=== PATIENT | female | born 1940 | race Caucasian/White ===

== ENCOUNTER 2016-05-15 05:17 | Day surgery (SDC) | payer MEDICARE, MEDICAID ==
[2016-05-15] VITALS (12 sets, daily range): BP systolic 125–153; BP diastolic 54–77; PULSE 58–86; TEMP 97.2–98.2
[~2016-05-15] VITALS: Ht 160 cm; Wt 66.8 kg
[~2016-05-15 05:17] MED LIST: ALBUTEROL SULFAT3 M3 IH; ALLOPURINOL100 MG PO; ALMACONE 360 M360 ML PO; AMITRIPTYLINE H50 M1 PO; AMITRIPTYLINE25 MG PO; APRISO0.375 GM PO; ARTIFICIAL TEAR15 M7 OP; ASACOL 400400 MG/TAB PO; ASPERCREME85G TP; B-121000 MCG PO; COLACE 100100 MG/CAP PO; COUMADIN 3MG3 MG/TAB PO; COUMADIN 6MG6 MG/TAB PO; COUMADIN4 MG PO; COZAAR100 MG PO; CYMBALTA 30MG30 MG PO; CYMBALTA 60MG60 MG PO; DARVON; DEBROX OT; DULCOLAX S10 MG/SUPP RC; FENTANYL 100MCG TD; FERRO-TIME325 MG PO; FLAGYL500 MG PO; FLONASE NASAL S16 GM NS; FLONASEALLERGY NS; FLOVENT0.11 MG/AC IH; GENTLE LAXATIVE10 MG RC; GLUCERNA 240 M240 ML PO; GLUCOTROL10 MG PO; GLYBURIDE5 MG PO; HCTZ12.5TAB PO; HUMULIN R 10100 U/ML; INDOCIN 25MG CA25 MG PO; INDOCIN25 MG PO; IRON325 M1 PO; LANTUS100 U/ML; LASIX 40MG TABL40 MG PO; LEVAQUIN 5500 MG/TA1 PO; LEVOTHYROXIN0.125 MG PO; LEVOXYL0.125 MG PO; LIQUIFILM TEARS15 ML OU; METHADONE H10 MG/TAB PO; MICROZIDE12.5 MG PO; MILK OF MA400 MG/52; MILK OF MA400 MG/52 PO; MOBIC 7.5MG7.5 MG PO; NATURE'S BLE1000 MCG PO; NORCO 325 MG-51 TAB PO; NORVASC2.5 MG PO; NOVOLOG 100U100 U/M1 SQ; NYSTATIN OR100 MU/ML PO; PERCOCET 325 MG1 TA2 PO; POLYSPORIN OINT30 GM TP; PRILOSEC 20MG20 MG PO; PROAIR HFA0.09 MG/AC IH; REFRESH CELLUVI1 SOL OP; RESTASIS 60VL OP; RESTASIS 60VL OU; ROBAXIN 75750 MG/TAB PO; RT ADVAIR 228 DISKUS IH; SYNTHROID0.125 MG/T PO; SYNTHROID0.137 MG PO; TYLENOL 325MG325 MG PO; TYLENOL 8 HR PO; TYLENOL SU650 MG/SUP RC; VANOS 0.1% TP; VENTOLIN0.09 MG IH; VITAMIN B-1000 MCG/T PO; WARFARIN SODIUM6 MG PO; ZANTAC 150MG T150 MG PO; ZOFRAN INJ4 MG/2 ML IV; ZYLOPRIM 100MG100 MG PO
[2016-05-15 06:21] LABS: BASO % 0.5 % (0.0-2.0); EOS # 0.8 (0.0-0.7); EOS % 14.4 % (0-4.0); GRAN # 3.3 (1.4-6.5); GRAN % 57.5 % (42.2-75.2); HEMATOCRIT 40.1 % (37.0-47.0); HEMOGLOBIN 13.1 g/dl (12.5-16.0); LYMPH # 1.2 (1.2-3.4); LYMPH % 20.5 % (20.0-51.0); MEAN CELL VOLUME 94 fl (80.0-100.0); MEAN CORPUSCULAR HEMOGLOBIN 31 pg (27.0-31.0); MEAN CORPUSCULAR HGB CONC 33 g/dl (33.0-37.0); MEAN PLATELET VOLUME 9.6 fl (7.4-10.4); MONO # 0.4 (0.1-0.6); MONO % 6.8 % (1.7-9.3); PLATELET COUNT 232 K/mm3 (130-400); RED BLOOD COUNT 4.25 M/mm3 (4.10-5.30); REDCELL DISTRIBUTION WIDTH-CV 11.9 % (11.5-14.5); WHITE BLOOD COUNT 5.8 K/mm3 (4.8-10.8)
[2016-05-15 06:32] LABS: ADJUSTED CALCIUM 9.4 mg/dL (8.4-10.2); ALBUMIN 4.1 gm/dL (3.5-5.0); BILIRUBIN,TOTAL 0.4 mg/dL (0.0-1.0); CALCIUM 9.5 mg/dL (8.4-10.2); CREATININE, serum 1.55 mg/dL (0.52-1.25); POTASSIUM 3.7 mmol/L (3.4-5.0); TOTAL PROTEIN 7.4 gm/dL (6.4-8.2)
[2016-05-16 04:37] VITALS: BP 136/91; PULSE 80; TEMP 98.2
[2016-05-16 10:38] VITALS: BP 140/59; PULSE 66; TEMP 98.6
[2016-05-16 13:57] VITALS: BP 151/75; PULSE 67; TEMP 97.7
[2016-05-16 17:01] VITALS: BP 151/75; PULSE 67; TEMP 97.7
== END 2016-05-16 17:41 ==
LOC: SDCO 05:17 → SURG 09:40 → SDCO 05-16 17:41
PROVIDERS: Surgery
DX: K80.10 Calculus of gallbladder with chronic cholecystitis without obstruction (principal); K82.8 Other specified diseases of gallbladder; E11.40 Type 2 diabetes mellitus with diabetic neuropathy, unspecified; K21.9 Gastro-esophageal reflux disease without esophagitis; E03.9 Hypothyroidism, unspecified; I10 Essential (primary) hypertension; G47.33 Obstructive sleep apnea (adult) (pediatric); K51.90 Ulcerative colitis, unspecified, without complications; Z85.3 Personal history of malignant neoplasm of breast; M51.36 Other intervertebral disc degeneration, lumbar region; M15.9 Polyosteoarthritis, unspecified; Z79.899 Other long term (current) drug therapy; Z79.01 Long term (current) use of anticoagulants; Z79.4 Long term (current) use of insulin; Z79.84 Long term (current) use of oral hypoglycemic drugs
CPT/HCPCS: OP; J0690; J1170; J2270; J2405; J2704; J2710; J3010; J7030

== ENCOUNTER → 2016-06-12 | Outpatient (REF) ==
[~2016-06-12] MED LIST changes: +ATIVAN 0.50.5 MG/TAB PO; +DESYREL 100MG100 MG PO; +LASIX 20MG TABL20 MG PO; +SYNTHROID0.112 MG/T PO
== END ==
LOC: ZLAB.WCH 10:34
DX: Z01.89 Encounter for other specified special examinations (principal)

== ENCOUNTER 2016-06-13 13:55 | Emergency (ER) | payer MEDICARE, MEDICAID ==
[~2016-06-13] VITALS: Ht 160 cm; Wt 65.9 kg
[~2016-06-13 13:55] MED LIST changes: -ATIVAN 0.50.5 MG/TAB PO; -DESYREL 100MG100 MG PO; -LASIX 20MG TABL20 MG PO; -SYNTHROID0.112 MG/T PO
[2016-06-13] MEDS ORDERED: DESYREL 100MG100 MG PO (14:48)
[2016-06-13] MEDS ORDERED: LASIX 20MG TABL20 MG PO (14:48)
[2016-06-13] MEDS ORDERED: SYNTHROID0.112 MG/T PO (14:48)
[2016-06-13 15:41] LABS: BASO % 0.7 % (0.0-2.0); EOS # 0.2 (0.0-0.7); EOS % 3.9 % (0-4.0); GRAN # 4.4 (1.4-6.5); GRAN % 75.1 % (42.2-75.2); HEMATOCRIT 39.9 % (37.0-47.0); HEMOGLOBIN 13.1 g/dl (12.5-16.0); LYMPH % 16.6 % (20.0-51.0); MEAN CELL VOLUME 93 fl (80.0-100.0); MEAN CORPUSCULAR HEMOGLOBIN 31 pg (27.0-31.0); MEAN CORPUSCULAR HGB CONC 33 g/dl (33.0-37.0); MEAN PLATELET VOLUME 10.2 fl (7.4-10.4); MONO # 0.2 (0.1-0.6); MONO % 3.4 % (1.7-9.3); PLATELET COUNT 200 K/mm3 (130-400); REDCELL DISTRIBUTION WIDTH-CV 12.4 % (11.5-14.5); WHITE BLOOD COUNT 5.9 K/mm3 (4.8-10.8)
[2016-06-13 15:54] LABS: PH 5 (5-8); SQUAMOUS EPITHELIAL 0-2 /hpf; URINE APPEARANCE Clear; URINE BACTERIA None Seen /hpf; URINE BILIRUBIN Negative (NEGATIVE); URINE BLOOD 1+ (NEGATIVE); URINE COLOR Yellow; URINE GLUCOSE Negative (NEGATIVE); URINE KETONE Negative (NEGATIVE); URINE UROBILINOGEN Negative (NEGATIVE)
[2016-06-13 15:57] LABS: ADJUSTED CALCIUM 9.5 mg/dL (8.4-10.2); ALANINE AMINOTRANSFERASE 29 U/L (9-52); ALBUMIN 3.8 gm/dL (3.5-5.0); ALKALINE PHOSPHATASE 106 U/L (50-136); ANION GAP 9 mmol/L (7-16); BILIRUBIN,TOTAL 0.8 mg/dL (0.0-1.0); BLOOD UREA NITROGEN 22 mg/dL (7-17); CALCIUM 9.3 mg/dL (8.4-10.2); CARBON DIOXIDE 26 mmol/L (22-30); CHLORIDE 103 mmol/L (98-107); CREATININE, serum 1.62 mg/dL (0.52-1.25); GLUCOSE 215 mg/dL (74-106); LIPASE 35 U/L (23-300); SODIUM 139 mmol/L (137-145); TOTAL PROTEIN 6.9 gm/dL (6.4-8.2)
[2016-06-13 15:59] LABS: INFLUENZA B NEGATIVE
[2016-06-13 16:09] LABS: B-TYPE NATRIURETIC PEPTIDE 345 pg/mL (0-450)
[2016-06-13 16:10] LABS: TROPONIN-I < 0.012 ng/mL (0.000-0.034)
[2016-06-13] MEDS ORDERED: ATIVAN 0.50.5 MG/TAB PO (17:11)
[2016-06-13 17:38] VITALS: BP 174/90; PULSE 65; TEMP 98
== END 2016-06-13 17:38 ==
LOC: COL.ER 13:55
PROVIDERS: Emergency Medicine
DX: E11.22 Type 2 diabetes mellitus with diabetic chronic kidney disease (principal); I12.9 Hypertensive chronic kidney disease with stage 1 through stage 4 chronic kidney disease, or unspecified chronic kidney disease; N18.9 Chronic kidney disease, unspecified; Z79.84 Long term (current) use of oral hypoglycemic drugs; R53.83 Other fatigue; R68.83 Chills (without fever)
CPT/HCPCS: J7030

== ENCOUNTER → 2016-12-19 | Outpatient (REF) ==
[~2016-12-19] MED LIST changes: +ATIVAN 0.50.5 MG/TAB PO; +DESYREL 100MG100 MG PO; +LASIX 20MG TABL20 MG PO; +SYNTHROID0.112 MG/T PO
== END ==
LOC: ZLAB.WCH 18:03
DX: Z01.89 Encounter for other specified special examinations (principal)

== ENCOUNTER 2021-09-19 01:58 | Inpatient (IN) | payer MEDICARE, MEDICAID ==
[~2021-09-19] VITALS: Ht 167.6 cm; Wt 76.4 kg
[~2021-09-19 01:58] MED LIST changes: +ALBUTEROL0.83 MG/ML IH; +BIOTIN2500 MCG PO; +BUSPAR10 MG PO; +CELEXA 20MG20 MG/TAB PO; +DESYREL 50MG50 MG PO; +EXELON 1.5MG1.5 MG PO; +FENTANYL37.5 MCG/H TD; +MUCINEX 60600 MG/TA1 PO; +NORCO 325 MG-101 TAB PO; +PEPCID 20MG TAB20 MG PO; +SYNTHROID0.1 MG/TAB PO; +VOLTAREN GEL 1%1 TU TP
[2021-09-19 03:31] LABS: BASO # 0.1 K/mm3 (0.0-0.2); BASO % 0.3 % (0.0-2.0); EOS # 0.3 K/mm3 (0.0-0.7); EOS % 1.7 % (0.0-4.0); GRAN # 15.6 K/mm3 (1.4-6.5); GRAN % 84.1 % (42.2-75.2); HEMOGLOBIN 11.7 g/dl (12.5-16.0); LYMPH # 1.2 K/mm3 (1.2-3.4); LYMPH % 6.7 % (20.0-51.0); MEAN CELL VOLUME 91 fl (80.0-100.0); MEAN CORPUSCULAR HEMOGLOBIN 29 pg (27-31); MEAN CORPUSCULAR HGB CONC 32 g/dl (33.0-37.0); MONO # 1.2 K/mm3 (0.1-0.6); MONO % 6.6 % (1.7-9.3); PLATELET COUNT 245 K/mm3 (130-400); RED BLOOD COUNT 4.03 M/mm3 (4.10-5.30); REDCELL DISTRIBUTION WIDTH-CV 12.8 % (11.5-14.5)
[2021-09-19 03:34] LABS: HEMATOCRIT 36.5 % (37.0-47.0)
[2021-09-19 03:47] LABS: ALBUMIN 3.4 gm/dL (3.4-4.8); ALKALINE PHOSPHATASE 80 U/L (40-150); ANION GAP 13 mmol/L (7-16); AST,SGOT 15 U/L (5-34); BILIRUBIN,TOTAL 0.3 mg/dL (0.2-1.2); BLOOD UREA NITROGEN 27 mg/dL (10-20); CALCIUM 8.3 mg/dL (8.4-10.2); CARBON DIOXIDE 22 mmol/L (23-31); CHLORIDE 104 mmol/L (98-107); CREATININE, serum 2.19 mg/dL (0.57-1.11); GLUCOSE 180 mg/dL (70-99); POTASSIUM 4.1 mmol/L (3.5-4.5); SODIUM 139 mmol/L (136-145); TOTAL PROTEIN 6.9 gm/dL (6.2-8.1)
[2021-09-19 03:49] LABS: ALANINE AMINOTRANSFERASE < 6 U/L (0-55)
[2021-09-19 03:54] LABS: TROPONIN-I < 0.010 ng/mL (0.00-0.033)
[2021-09-19 04:14] LABS: INR 1.3 (0.8-3.0); PROTHROMBIN TIME 14.4 SECONDS (9.7-12.8)
[2021-09-19] MEDS ORDERED: JANUVIA50 MG PO (06:11)
[2021-09-19] MEDS ORDERED: LEXAPRO20 MG PO (06:11)
[2021-09-19] MEDS ORDERED: MELATONIN5 M1 SL (06:11)
[2021-09-19] MEDS ORDERED: CLARITIN 1010 MG/TAB PO (06:11)
[2021-09-19] MEDS ORDERED: FOSAMAX 70MG TA70 MG PO (06:12)
[2021-09-19] MEDS ORDERED: ZYPREXA 5MG5 MG PO (06:12)
[2021-09-19] MEDS ORDERED: LASIX 20MG TABL20 MG PO (06:14)
[2021-09-19 07:52] LABS: COLLECTION METHOD IN
[2021-09-19 08:03] LABS: PH 5 (5-8); SQUAMOUS EPITHELIAL None Seen /hpf (0-10); URINE APPEARANCE Turbid (CLEAR/HAZY); URINE BACTERIA Many /hpf (NONE SEEN); URINE BILIRUBIN Negative (NEGATIVE); URINE BLOOD 2+ (NEGATIVE); URINE COLOR Yellow (YELLOW); URINE GLUCOSE Negative (NEGATIVE); URINE KETONE Negative (NEGATIVE); URINE LEUKOCYTE ESTERASE 3+ (NEGATIVE); URINE NITRATE Positive (NEGATIVE); URINE PROTEIN(semi-quant) 2+ (NEGATIVE); URINE RBC 20-50 /hpf (0-2); URINE UROBILINOGEN Negative (NEGATIVE)
--- NOTE | 2021-09-19 11:24 | NUR ---
Canine Service Teacher contacted by Alphonse who advised patient is a resident at [facility] and inquired if patient can return there today. Patient was admitted overnight and is currently boarding in the ED. GREG contacted Mahamed at [facility] and faxed clinical updates. GREG advised Mahamed that per nursing staff patient is down to one liter of oxygen. Mahamed confirmed patient is a resident of [facility]. Mahamed reviewed updates and advised they are not able to accept patient back today. GREG contacted LACY Horner to provide update and advised that if they want to discharge today, Hospitalist will need to contact Dr. Villar for a to call.
--- NOTE | 2021-09-19 11:30 | NUR ---
ASSISTED DEVEN SOLORZANO AND DEVEN JAVIER TRANSFERRING PATIENT TO MEDICAL ROOM 354. DURING THIS TIME DEVEN SOLORZANO AND THIS RN OBSERVED A STAGE 2 PRESSURE INJURY TO THE COCCYX.
[2021-09-19 13:39] VITALS: BP 125/57; PULSE 82; TEMP 98.4
[2021-09-19] MEDS ORDERED: IMODIUM 2MG CAPS2 MG PO (14:43)
[2021-09-19 15:45] VITALS: BP 109/43; PULSE 79; TEMP 98.1
--- NOTE | 2021-09-19 16:12 | NUR ---
LOW BP REPORTED FROM [employer] BARREL HEADER, BP RECHECKED SECOND TIME, PT DENIES ANY S/S OF LOW BP. DENIES DIZZINESS OR LIGHT HEADEDNESS
--- NOTE | 2021-09-19 17:30 | NUR ---
PT PLEASANT, DOSE REPORT PAIN BUT WITH BORDERLINE LOW PRESSURE AND PT DROWSINESS NO PAIN MEDS GIVEN AT THIS TIME. PT ALERT BUT SLOW TO RESPOND REQURIES MULTIPLE PROMPTS TO ANSWER QUESTIONS. NO OTHER NEEDS
--- NOTE | 2021-09-19 18:07 | NUR ---
INSULIN GIVEN AT DINNERTIME, PT FEEDING HERSELF, WINCING WHEN SITTING UP.
--- NOTE | 2021-09-19 19:20 | NUR ---
Tx given via mask, tolerated well. Pt placed back on 1L NC after tx.
[2021-09-19 20:01] VITALS: BP 119/55; PULSE 89; TEMP 99
--- NOTE | 2021-09-19 20:30 | NUR ---
Initial shift assessment done- VSS, would like something for pain, states has hip pain 12/20. [place] given, o2 sats on RA 89%- on 1 L/nc, sats 92-93%, Almaraz with cloudy/urine with clumps of sediment, IV fluids of NS at 75cc/hr, Alert/oriented to person/place but not time- bed alarm on, close to nsg station.
[2021-09-20 00:05] VITALS: BP 117/53; PULSE 78; TEMP 97.9
[2021-09-20 04:16] VITALS: BP 112/64; BP 124/58; PULSE 59; PULSE 76; TEMP 97.8; TEMP 98.3
--- NOTE | 2021-09-20 06:16 | NUR ---
Quiet night-- has been sleeping well tonight-- did get a pain pill at the start of the shift- good amount out of Almaraz {[id number]}- no requests at this time- . Repositioned throughout the night-
[2021-09-20 06:21] LABS: BASO % 0.7 % (0.0-2.0); EOS # 0.4 K/mm3 (0.0-0.7); EOS % 6.4 % (0.0-4.0); GRAN % 68.2 % (42.2-75.2); MEAN CELL VOLUME 94 fl (80.0-100.0); MEAN CORPUSCULAR HGB CONC 31 g/dl (33.0-37.0); MEAN PLATELET VOLUME 9.3 fl (7.4-10.4); MONO # 0.5 K/mm3 (0.1-0.6); MONO % 8.4 % (1.7-9.3); PLATELET COUNT 198 K/mm3 (130-400); RED BLOOD COUNT 3.35 M/mm3 (4.10-5.30); REDCELL DISTRIBUTION WIDTH-CV 12.8 % (11.5-14.5)
[2021-09-20 06:22] LABS: HEMATOCRIT 31.5 % (37.0-47.0); MEAN CORPUSCULAR HEMOGLOBIN 30 pg (27-31)
[2021-09-20 06:40] LABS: CALCIUM 7.7 mg/dL (8.4-10.2); CREATININE, serum 1.78 mg/dL (0.57-1.11); POTASSIUM 4.3 mmol/L (3.5-4.5)
[2021-09-20 07:21] VITALS: BP 118/57; PULSE 77; TEMP 97.9
--- NOTE | 2021-09-20 09:51 | NUR ---
GREG met with the patient's son, Lucho (ph#[phone]), to discuss discharge plan. Lucho confirms that the patient resides at [facility] in [facility] and that the plan is for the patient to return back to [facility] upon discharge. The patient's DPOA-HC is in EMR and it designates her son, Lucho. The alternate is Scotty's , Cathy (ph#[phone]). GREG contacted and faxed updates to Rj at [facility]. GREG to continue to follow. *Discharge plan: [facility]*
[2021-09-20 11:16] VITALS: BP 118/55; PULSE 80; TEMP 98.3
--- NOTE | 2021-09-20 12:09 | NUR ---
Pt alert and oriented when awoken. Pt appears to be drowsy today when not stimulated, or falls back asleep quickly. Is alert to speech and is able to answer orientation questions correctly. Reported "all around pain" this morning. Administered prn norco and repositioned and the pt reported relief. Shift assessment performed. Medications administered per orders and education provided. Pt only ate a small amount of breakfast, but ate was more alert at lunch and ate independently. Pt was on 1L, but bumped to 2L because she was sitting at 89-90%. Pt consistently pulls off oxygen and has to be reminded to keep it on. Buck catheter in place, with adequate output. Urine is yellow, with sediment. Was given verbal orders by the hospitalist to remove the buck catheter today. Will remove catheter and chart the urine output. VS stable. FSBS stable. Continuing to turn pt every 2 hours to prevent skin damage. Noted a small stage 1 pressure ulcer on the sacral area with a small skin tear in the middle that a second RN verified with me. Lung sounds are clear. Called another consult into ortho to see pt. Pt reports no questions at this time, will continue to monitor.
--- NOTE | 2021-09-20 12:55 | NUR ---
Removed buck catheter per orders. Emptied 550 ml of yellow urine from the buck bag prior to removing the catheter. Pulled 10 ml of fluid from balloon and provided mallory care. No concerns at this time.
[2021-09-20 15:23] VITALS: BP 123/59; PULSE 83; TEMP 98.4
--- NOTE | 2021-09-20 19:24 | NUR ---
No adverse events throughout the shift. Pt remains alert and oriented, but still drowsy. Reported "all around" pain x2 today. Prn norco was administered x2 with q2 repositioning and pt reported relief. Almaraz was removed today and pt was up to the bsc with 2 assist to void. Pt had adequate output today and intake was fair. IV fluids continue as well as IV antibx. VS stable today, pt afebrile. On 2L NC satting in 90's. Encouraged pt to get OOB with staff or PT when able. Pt reports no questions at this time. No new concerns.
[2021-09-20 20:39] VITALS: BP 121/58; PULSE 84; TEMP 98.1
[2021-09-21 00:24] VITALS: BP 111/52; PULSE 78; TEMP 99.1
[2021-09-21 04:28] VITALS: BP 129/70; PULSE 79; TEMP 98.3
[2021-09-21 05:54] LABS: BASO % 0.3 % (0.0-2.0); EOS # 0.3 K/mm3 (0.0-0.7); EOS % 3.9 % (0.0-4.0); GRAN # 5.9 K/mm3 (1.4-6.5); GRAN % 76.3 % (42.2-75.2); LYMPH # 0.8 K/mm3 (1.2-3.4); LYMPH % 10.2 % (20.0-51.0); MEAN CELL VOLUME 94 fl (80.0-100.0); MEAN CORPUSCULAR HGB CONC 31 g/dl (33.0-37.0); MEAN PLATELET VOLUME 9.4 fl (7.4-10.4); MONO # 0.7 K/mm3 (0.1-0.6); PLATELET COUNT 185 K/mm3 (130-400); RED BLOOD COUNT 3.33 M/mm3 (4.10-5.30); REDCELL DISTRIBUTION WIDTH-CV 12.9 % (11.5-14.5)
[2021-09-21 06:06] LABS: HEMATOCRIT 31.4 % (37.0-47.0); HEMOGLOBIN 9.7 g/dl (12.5-16.0); MEAN CORPUSCULAR HEMOGLOBIN 29 pg (27-31)
[2021-09-21 06:16] LABS: CALCIUM 7.8 mg/dL (8.4-10.2); CREATININE, serum 1.64 mg/dL (0.57-1.11); POTASSIUM 4.3 mmol/L (3.5-4.5)
--- NOTE | 2021-09-21 06:30 | NUR ---
ASSESSMENT COMPLETE FOR THIS SHIFT. PT RESTING IN BED WATCHING TV. PT COMPLAINED OF LOWER LEFT SIDED PAIN (HIP TO LOWER LEFT LEG). PT GIVEN MORPHINE FOR PAIN. PAIN MEDICATION WAS EFFECTIVE PER PT. PT DENIED PALPITATIONS, SOB, N,V,D OR DIZZINESS. PT FELT GETTING UP TO RESTROOM WAS VERY PAINFUL AND WANTED TO TRY THE PUREWICK FOR THE NIGHT. PUREWICK APPLIED. PT EXPRESSED NO OTHER NEEDS AT THIS TIME. CALL LIGHT WITHIN REACH.
[2021-09-21 07:48] VITALS: BP 140/56; PULSE 86; TEMP 98.4
[2021-09-21] MEDS ORDERED: IPRATROPIUM BROM3 M1 IH (09:07)
[2021-09-21] MEDS ORDERED: TYLENOL 500MG500 MG PO (09:09)
[2021-09-21] MEDS ORDERED: MIRALAX PA17 GM/Dose PO (09:11)
[2021-09-21] MEDS ORDERED: NORCO 325 MG-51 TAB PO (09:12)
--- NOTE | 2021-09-21 10:06 | NUR ---
PT RESTING IN BED. MORNING MEDICATIONS GIVEN. SHIFT ASSESSMENT COMPLETED. PT REPORTS PAIN WHEN BEING MOVED IN BED. UPDATED ON POC. WILL CONTINUE TO MONITOR.
--- NOTE | 2021-09-21 11:22 | NUR ---
REPORT GIVEN TO RN AT [facility].
[2021-09-21 12:23] VITALS: BP 140/72; PULSE 88; TEMP 98.4
--- NOTE | 2021-09-21 12:40 | NUR ---
First visit from the back strip machine operator. No needs right now.
[2021-09-21 16:04] VITALS: BP 131/66; PULSE 80; TEMP 98.5
--- NOTE | 2021-09-21 16:09 | NUR ---
The clinical team was ready to discharge the patient today. GREG notified and faxed updates to Rj at [facility]. Rj states that Dr. Villar would like a doc-to-doc. GREG notified the hospitalist. The hospitalist did the doc-to-doc. The hospitalist and Dr. Villar agree that the patient needs a VQ scan and doppler scan before discharge. Those were ordered. The patient did not arrive back from the VQ scan until late afternoon. Rj, at [facility], reports that with it being late in the afternoon and the results are not back yet, they will not be able to take the patient back until tomorrow now. GREG updated the PA, RN, and the patient's son (Lucho). The patient's son was agreeable to the plan.
[2021-09-21 20:47] VITALS: BP 137/63; PULSE 84; TEMP 98
[2021-09-22 00:40] VITALS: BP 126/58; PULSE 66; TEMP 98.2
[2021-09-22 04:00] VITALS: BP 123/81; PULSE 93; TEMP 98.1
--- NOTE | 2021-09-22 05:53 | NUR ---
ASSESSMENT COMPLETE FOR THIS SHIFT. PT RESTING BUT A BIT UNCOMFORTABLE IN BED WATCHING TV. PT COMPLAINED OF LEFT HIP AND LEFT LOWER EXTREMITY PAIN. PT GIVEN NORCO AND MORPHINE A COUPLE OF TIMES TONIGHT FOR PAIN. PAIN MEDICATIONS WERE EFFECTIVE PER PT. PT DENIED PALPITATIONS, N,V,D, SOB OR DIZZINESS. PT INCONTINENT SEVERAL TIMES THIS SHIFT, NEEDING FULL BED CHANGES DUE TO NOT BEING ABLE TO GET UP TO THE BEDSIDE COMMODE, DUE TO PAIN. PT EXPRESSED NO OTHER NEEDS AT THIS TIME. CALL LIGHT WITHIN REACH.
[2021-09-22 07:19] VITALS: BP 142/63; PULSE 78; TEMP 98.4
--- NOTE | 2021-09-22 08:53 | NUR ---
PT REPORTING PAIN 8/10 IN "LEFT HIP, I BROKE IT". PT PLACED ON BED FAY WITH NO OUTPUT ,PT REPORTING PAIN TOO HIGH FOR AMBULATION AT THIS TIME. PAIN MEDICATIONS GIVEN [facility] MORNING PILLS. PT PLACED ON RA DURING AM VITALS AND SATTING 94%. ASSESSMENT PERFORMED, PT DRESSED FOR DISCHARGE, FENTANYL PATCH PLACED ON L SHOULDER. OLD PATCH WASTED WITH JUSTINA TOVAR RN.
--- NOTE | 2021-09-22 10:04 | NUR ---
Rj, at [facility], reports that they are good to accept the patient today. Transportation was arranged at 1000. SW attempted to contact the patient's son, Lucho, 4 times to inform of transportation time and the IM. SW left him voicemails. The patient is to discharge today, 09/22, back to [facility] for a skilled stay. Transportation was scheduled at 1000, via [facility]. GREG informed the patient's RN of the time. No additional needs at this time.
--- NOTE | 2021-09-22 10:23 | NUR ---
PT ESCORTED OUT VIA WHEELCHAIR. PT 2 ASSIT UP TO WHEELCHAIR. PT IV REMOVED. PAPERWORK SENT WITH [employer] EMPLOYEE.
--- NOTE | 2021-09-22 10:30 | NUR ---
REPORT CALLED TO TALHA FERGUSON AT [facility]. NO OTHER NEEDS
== END 2021-09-22 10:23 | DRG 535 ==
LOC: COL.ER 01:58 → MEDICAL 04:10
PROVIDERS: Internal Medicine; Personal Emergency Response Attendant; Physician Assistant; Student in an Organized Health Care Education/Training Program; ADMIT Family Medicine
DX: S32.592A Other specified fracture of left pubis, initial encounter for closed fracture (principal); J96.01 Acute respiratory failure with hypoxia; S32.19XA Other fracture of sacrum, initial encounter for closed fracture; N17.9 Acute kidney failure, unspecified; N39.0 Urinary tract infection, site not specified; E03.9 Hypothyroidism, unspecified; Z66 Do not resuscitate; I12.9 Hypertensive chronic kidney disease with stage 1 through stage 4 chronic kidney disease, or unspecified chronic kidney disease; E11.22 Type 2 diabetes mellitus with diabetic chronic kidney disease; N18.9 Chronic kidney disease, unspecified; J44.9 Chronic obstructive pulmonary disease, unspecified; G89.29 Other chronic pain; G30.9 Alzheimer's disease, unspecified; F02.80 Dementia in other diseases classified elsewhere, unspecified severity, without behavioral disturbance, psychotic disturbance, mood disturbance, and anxiety; F32.A Depression, unspecified; F41.9 Anxiety disorder, unspecified; L89.152 Pressure ulcer of sacral region, stage 2; W01.0XXA Fall on same level from slipping, tripping and stumbling without subsequent striking against object, initial encounter; Y93.89 Activity, other specified; Y92.121 Bathroom in nursing home as the place of occurrence of the external cause; Z96.653 Presence of artificial knee joint, bilateral; Z96.642 Presence of left artificial hip joint; Z85.3 Personal history of malignant neoplasm of breast; Z86.718 Personal history of other venous thrombosis and embolism; Z20.822 Contact with and (suspected) exposure to COVID-19
CPT/HCPCS: 99232-AI; 99233-AI; 99239; A9540; A9567; J0696; J1644; J1815; J2270; J2405; J7030

== ENCOUNTER → 2023-07-09 | Outpatient (REF) | payer MEDICARE, MEDICAID ==
[~2023-07-09] MED LIST changes: +CLARITIN 1010 MG/TAB PO; +FOSAMAX 70MG TA70 MG PO; +IMODIUM 2MG CAPS2 MG PO; +IPRATROPIUM BROM3 M1 IH; +JANUVIA50 MG PO; +LEXAPRO20 MG PO; +MELATONIN5 M1 SL; +MIRALAX PA17 GM/Dose PO; +TYLENOL 500MG500 MG PO; +ZYPREXA 5MG5 MG PO
[2023-07-09 17:27] LABS: BASO % 0.5 % (0.0-2.0); EOS # 0.5 K/mm3 (0.0-0.7); EOS % 6.3 % (0.0-4.0); GRAN # 5.9 K/mm3 (1.4-6.5); GRAN % 68.9 % (42.2-75.2); HEMATOCRIT 34.7 % (37.0-47.0); HEMOGLOBIN 10.7 g/dl (12.5-16.0); LYMPH # 1.1 K/mm3 (1.2-3.4); LYMPH % 12.9 % (20.0-51.0); MEAN CELL VOLUME 96 fl (80.0-100.0); MEAN CORPUSCULAR HEMOGLOBIN 30 pg (27-31); MEAN CORPUSCULAR HGB CONC 31 g/dl (33.0-37.0); MEAN PLATELET VOLUME 9.4 fl (7.4-10.4); MONO # 0.9 K/mm3 (0.1-0.6); PLATELET COUNT 291 K/mm3 (130-400); RED BLOOD COUNT 3.62 M/mm3 (4.10-5.30); REDCELL DISTRIBUTION WIDTH-CV 12.7 % (11.5-14.5)
[2023-07-09 17:51] LABS: ALBUMIN 2.6 gm/dL (3.4-4.8); CREATININE, serum 4.95 mg/dL (0.57-1.11); PHOSPHOROUS 5.9 mg/dL (2.3-4.7); POTASSIUM 4.7 mmol/L (3.5-4.5)
== END ==
LOC: ZCOL.LAB 13:40
PROVIDERS: Internal Medicine Nephrology
DX: E11.22 Type 2 diabetes mellitus with diabetic chronic kidney disease (principal); N18.9 Chronic kidney disease, unspecified

== ENCOUNTER → 2023-07-18 | Outpatient (CLI) | payer MEDICARE, MEDICAID ==
[~2023-07-18] MED LIST changes: +CEPHALEXIN500 M1 PO; +PRILOTC
== END ==
LOC: COL.RAD 09:01
DX: N17.9 Acute kidney failure, unspecified (principal)

== ENCOUNTER 2023-07-31 09:32 | Outpatient (CLI) | payer MEDICARE, MEDICAID ==
[2023-07-31] VITALS (8 sets, daily range): BP systolic 147–167; BP diastolic 78–90; PULSE 80–85; TEMP 98.5
[~2023-07-31] VITALS: Ht 167.7 cm; Wt 71.0 kg
[~2023-07-31 09:32] MED LIST changes: -CEPHALEXIN500 M1 PO; -PRILOTC
[2023-07-31] MEDS ORDERED: ceFAZolin 1 G in Water For Injection,Sterile 10 ML IV SCH (10:30)
[2023-07-31] MEDS ORDERED: PRILOTC (11:18)
[2023-07-31] MEDS ORDERED: Lidocaine 2% w EPI (1:100,000) 20 ML Multi-Dose VIAL IJ SCH (13:18)
[2023-07-31] MEDS ORDERED: Heparin 1,000 UNITS/ML 10 ML Multi-Dose VIAL ICA SCH (13:21)
[2023-07-31] MEDS ORDERED: Midazolam 2 MG/2 ML VIAL IV SCH (13:22)
[2023-07-31] MEDS ORDERED: fentaNYL 50 MCG/ML 2 ML VIAL IV SCH (13:25)
--- NOTE | 2023-07-31 13:27 | NUR ---
SEE MERGE FOR PROCEDURE DOCUMENTATION
--- NOTE | 2023-07-31 13:45 | NUR ---
PT RETURNED TO EU 10 VIA BED FROM CR[employer] PREVENTION WORKER, AWAKE, ALERT, DRESSING TO RIGHT UPPER CHEST IS CLEAN AND DRY, PT STATES HAVING NO PAIN, HOB ELEVATED TAKES SODA, LUNCH ORDERED, CALL LIGHT IN HANDS
--- NOTE | 2023-07-31 13:47 | NUR ---
PATIENT ALERT AND ORIENTED, DENIES PAIN OR NAUSEA. PT TRANSFERRED VIA SLIDE BOARD TO BED, POSITIONED FOR COMFORT AND TRANSPORTED TO EXPRESS 10. VITAL SIGNS TAKEN ON ARRIVAL, VSS. TDC SITE CDI. TRANSFER OF CARE TO DEVEN FONG. CALL LIGHT PLACED WITHIN REACH, BED IN LOWEST POSITION, X3 BEDRAILS IN PLACE.
--- NOTE | 2023-07-31 14:40 | NUR ---
PT EATING LUNCH, NO CHANGES OR REQUESTS
--- NOTE | 2023-07-31 15:00 | NUR ---
PT SITS UP IN BED, WATCHES TV, CON'T WITH LUNCH, NO CHANGES IN DRESSING
--- NOTE | 2023-07-31 15:30 | NUR ---
KERRIE PALM CALLED, RIAZ FERGUSON, REPORT GIVEN TO NURSE, ALSO WRITTEN REPORT AND MODERATE SEDATION INST. WITH DIALYSIS CATH INST. SENT WITH PT. PT UP ON BSC TO VOID WITH ASSIST, NEW ATTENDS ON, PT THEN UP IN W/C, INT D'CD, WAITING FOR TRANSPORTATION AT 1600
[2023-07-31 22:07] LABS: HEPATITIS B CORE AB,TOTAL Negative (Negative); HEPATITIS B SURFACE ANTIBODY <2.0 (()); HEPATITIS B SURFACE ANTIGEN Negative (Negative)
== END 2023-07-31 16:05 | disposition home or self-care (01) ==
LOC: COL.CAR 09:32
PROVIDERS: Internal Medicine Nephrology
DX: N19 Unspecified kidney failure (principal)
CPT/HCPCS: J0690; J1644; J2250; J3010

== ENCOUNTER 2023-08-07 11:55 | Emergency (ER) | payer MEDICARE, MEDICAID ==
[~2023-08-07 11:55] MED LIST changes: +PRILOTC
[2023-08-07 12:01] VITALS: TEMP 98.1
[2023-08-07 14:29] LABS: ALBUMIN 2.6 g/dL (3.4-4.8); ALKALINE PHOSPHATASE 77 U/L (40-150); ANION GAP 12 mmol/L (7-16); AST,SGOT 12 U/L (5-34); BILIRUBIN,TOTAL 0.3 mg/dL (0.2-1.2); BLOOD UREA NITROGEN 31 mg/dL (10-20); CALCIUM 7.7 mg/dL (8.4-10.2); CHLORIDE 102 mEq/L (98-107); CREATININE, serum 6.28 mg/dL (0.57-1.11); GLUCOSE 158 mg/dL (70-99); POTASSIUM 4.1 mEq/L (3.5-4.5); SODIUM 140 mEq/L (136-145); TOTAL PROTEIN 6.6 g/dl (6.2-8.1)
[2023-08-07 14:32] LABS: ALANINE AMINOTRANSFERASE < 6 U/L (0-55)
[2023-08-07 14:33] LABS: PH 7.5 (5.0-8.5); URINE APPEARANCE TURBID (CLEAR/HAZY); URINE BLOOD 3+ (NEGATIVE); URINE COLOR YELLOW (YELLOW); URINE GLUCOSE NEGATIVE (NEGATIVE); URINE KETONE NEGATIVE (NEGATIVE); URINE NITRATE NEGATIVE (NEGATIVE); URINE PROTEIN(semi-quant) 4+ (NEGATIVE); URINE UROBILINOGEN 0.2 E.U/dL (0.2-1.0)
[2023-08-07 14:35] LABS: TROPONIN-I 0.042 ng/mL (0.00-0.033)
[2023-08-07 14:41] LABS: BASO % 0.4 % (0.0-2.0); EOS # 0.2 K/mm3 (0.0-0.7); GRAN # 5.8 K/mm3 (1.4-6.5); GRAN % 77.3 % (42.2-75.2); HEMATOCRIT 37.5 % (37.0-47.0); HEMOGLOBIN 11.6 g/dl (12.5-16.0); LYMPH # 0.9 K/mm3 (1.2-3.4); LYMPH % 12.5 % (20.0-51.0); MEAN CELL VOLUME 95 fl (80.0-100.0); MEAN CORPUSCULAR HEMOGLOBIN 29 pg (27-31); MEAN CORPUSCULAR HGB CONC 31 g/dl (33.0-37.0); MEAN PLATELET VOLUME 8.9 fl (7.4-10.4); MONO # 0.6 K/mm3 (0.1-0.6); MONO % 7.4 % (1.7-9.3); PLATELET COUNT 223 K/mm3 (130-400); RED BLOOD COUNT 3.96 M/mm3 (4.10-5.30); REDCELL DISTRIBUTION WIDTH-CV 13.2 % (11.5-14.5)
[2023-08-07 15:07] LABS: URINE BACTERIA MODERATE /hpf (NONE SEEN); URINE RBC >50 /hpf (0-2); URINE WBC >50 /hpf (0-2)
[2023-08-07] MEDS ORDERED: NS 100 ML IV SCH (15:35)
[2023-08-07] MEDS ORDERED: Iohexol 300 - 100 ML VIAL IV ONE (15:36)
[2023-08-07 15:57] LABS: COLLECTION METHOD CLEAN CATCH
[2023-08-07] MEDS ORDERED: Cephalexin 500 MG CAP PO ONE (17:30)
[2023-08-07] MEDS ORDERED: CEPHALEXIN500 M1 PO (17:30)
[2023-08-07 17:52] VITALS: BP 153/87; PULSE 82
== END 2023-08-07 17:52 | disposition home or self-care (01) ==
LOC: COL.ER 11:55
PROVIDERS: Emergency Medicine
DX: R09.02 Hypoxemia (principal); E11.22 Type 2 diabetes mellitus with diabetic chronic kidney disease; N18.6 End stage renal disease; Z99.2 Dependence on renal dialysis
CPT/HCPCS: Q9967